=== PATIENT | male | born 2000 | race Caucasian/White ===

== ENCOUNTER 2024-10-24 20:21 | Emergency (ER) | payer SELFPAY ==
[~2024-10-24] VITALS: Ht 167.6 cm; Wt 60.8 kg
[2024-10-24 20:27] VITALS: TEMP 36.7; O2SAT 99
[2024-10-25] MEDS ORDERED: IBUP-2029 MT (01:04)
[2024-10-25] MEDS: KETOROLAC 15MG/ML VIAL IM ONE (01:38)
[2024-10-25 01:45] VITALS: BP 114/75; PULSE 68; RESP 18; O2SAT 97
== END 2024-10-25 01:46 | disposition home or self-care (01) ==
LOC: ER 20:21
DX: S62.141A Displaced fracture of body of hamate [unciform] bone, right wrist, initial encounter for closed fracture (principal); S62.304A Unspecified fracture of fourth metacarpal bone, right hand, initial encounter for closed fracture; X58.XXXA Exposure to other specified factors, initial encounter; Y93.66 Activity, soccer; Y92.89 Other specified places as the place of occurrence of the external cause; Y99.8 Other external cause status
CPT/HCPCS: 99284; 73110; 73130; 29125; 96372; J1885; A6449